=== PATIENT | male | born 1975 | race Caucasian/White ===

== ENCOUNTER → 2018-04-13 | Outpatient (CLI) | payer OTHER ==
[~2018-04-13] MED LIST: AMIT50 PO; AMOX500 PO; CITA20 PO; CLIN300 PO; CLON1 PO; HYDACE25S PR; HYDACE5 PO; IBUP800 PO; METRIBP PO; MIRALAX17 GM PO; OMEPRAZOLE20 MG PO; OXYACE5T PO; PENVK500 PO; QUET25 PO; RXHYDACE PO; RXPROM25 PO; ZESTRIL40 MG PO
[2018-04-13 10:57] LABS: BASOPHILS ABSOLUTE AUTO 0.06 K/mm3 (0.00-0.23); BASOPHILS PERCENT AUTO 2 % (0-2); EOSINOPHILS ABSOLUTE AUTO 0.33 K/mm3 (0.00-0.68); EOSINOPHILS PERCENT AUTO 9 % (0-6); Hematocrit 42.4 % (37.0-53.0); Hemoglobin 14.5 g/dL (13.5-17.5); IMMATURE GRAN ABSOLUTE AUTO 0.01 K/mm3 (0.00-0.10); IMMATURE GRAN PERCENT AUTO 0 % (0-1); LYMPHOCYTES ABSOLUTE AUTO 1.24 K/mm3 (0.84-5.20); LYMPHOCYTES PERCENT AUTO 34 % (21-46); MONOCYTES ABSOLUTE AUTO 0.39 K/mm3 (0.16-1.47); MONOCYTES PERCENT AUTO 11 % (4-13); Mean Corpuscular HGB Conc 34.2 g/dL (31.5-36.5); Mean Corpuscular Volume 96 fL (80-100); Mean Platelet Volume 9.2 fL (9.1-12.4); NEUTROPHILS ABSOLUTE AUTO 1.65 K/mm3 (1.96-9.15); NEUTROPHILS PERCENT AUTO 45 % (41-73); Platelet Count 276 K/mm3 (150-400); RDW Coefficient Variation 13.3 % (11.7-14.2); RDW Standard Deviation 47.5 fL (35.1-46.3); White Blood Cell Count 3.68 K/mm3 (4.00-11.30)
[2018-04-13 12:17] LABS: Alanine Aminotransfer (ALT/SGP 42 U/L (12-78); Albumin, Blood 3.7 g/dL (3.4-5.0); Alk Phos 73 U/L (50-136); Anion Gap 9 mmol/L (6-16); Aspartate Aminotrans (AST/SGOT 46 U/L (12-37); Bilirubin, Total 0.3 mg/dL (0.1-1.0); Blood Urea Nitrogen 12 mg/dL (8-24); Bun/Creatinine Ratio 10.3 (12.0-20.0); CO2, Blood 26 mmol/L (21-32); Calcium, Blood 8.3 mg/dL (8.5-10.1); Chloride, Blood 104 mmol/L (98-108); Creatinine, Blood 1.17 mg/dL (0.60-1.20); Globulin, Blood 3.8 g/dL (2.2-4.0); Glomerular Filtration Rate >60 (60-); Glucose, Blood 80 mg/dL (70-99); Potassium, Blood 4.5 mmol/L (3.5-5.5); Sodium, Blood 139 mmol/L (136-145); Total Protein, Blood 7.5 g/dL (6.4-8.2)
== END | disposition home or self-care (01) ==
LOC: LAB SHORT 10:48 → LAB EV 10:48
PROVIDERS: Physician Assistant
DX: K62.5 Hemorrhage of anus and rectum (principal)
CPT/HCPCS: 80053; 83690; 85025

== ENCOUNTER 2018-05-21 08:20 | Day surgery (SDC) | payer OTHER ==
[~2018-05-21] VITALS: Ht 172.7 cm; Wt 70.3 kg
== END 2018-05-21 10:55 | disposition home or self-care (01) ==
LOC: ORSCSDS 08:20
PROVIDERS: Student in an Organized Health Care Education/Training Program
PROC: 0DB58ZX Excision of Esophagus, Via Natural or Artificial Opening Endoscopic, Diagnostic (ICD-10-PCS; principal; 2018-05-21 09:45)
PROC: 0DJD8ZZ Inspection of Lower Intestinal Tract, Via Natural or Artificial Opening Endoscopic (ICD-10-PCS; principal; 2018-05-21 09:45)
PROC: 0DB68ZX Excision of Stomach, Via Natural or Artificial Opening Endoscopic, Diagnostic (ICD-10-PCS; principal; 2018-05-21 09:45)
PROC: 0DB98ZX Excision of Duodenum, Via Natural or Artificial Opening Endoscopic, Diagnostic (ICD-10-PCS; principal; 2018-05-21 09:45)
DX: K21.9 Gastro-esophageal reflux disease without esophagitis (principal); K22.70 Barrett's esophagus without dysplasia; R10.9 Unspecified abdominal pain; K92.1 Melena; K29.70 Gastritis, unspecified, without bleeding; K44.9 Diaphragmatic hernia without obstruction or gangrene; K64.8 Other hemorrhoids; I10 Essential (primary) hypertension; Z79.899 Other long term (current) drug therapy
CPT/HCPCS: 88305; 88342; J2250; J7120

== ENCOUNTER 2019-10-28 23:56 | Emergency (ER) | payer OTHER ==
[~2019-10-28] VITALS: Ht 170.2 cm; Wt 77.1 kg
== END 2019-10-29 00:52 | disposition home or self-care (01) ==
LOC: ER 23:56
DX: S09.90XA Unspecified injury of head, initial encounter (principal); F17.200 Nicotine dependence, unspecified, uncomplicated; W22.8XXA Striking against or struck by other objects, initial encounter
CPT/HCPCS: 70450; 99284-25

== ENCOUNTER 2023-01-01 09:04 | Day surgery (SDC) | payer OTHER ==
[~2023-01-01] VITALS: Ht 172.7 cm; Wt 73.4 kg
[~2023-01-01 09:04] MED LIST changes: +LISI20 PO
[2023-01-01 11:27] VITALS: BP 106/68
== END 2023-01-01 11:20 | disposition home or self-care (01) ==
LOC: ORSCSDS 09:04
PROVIDERS: Internal Medicine Gastroenterology
PROC: 0DB98ZX Excision of Duodenum, Via Natural or Artificial Opening Endoscopic, Diagnostic (ICD-10-PCS; principal; 2023-01-01 10:30)
PROC: 0DB58ZX Excision of Esophagus, Via Natural or Artificial Opening Endoscopic, Diagnostic (ICD-10-PCS; principal; 2023-01-01 10:30)
DX: K22.70 Barrett's esophagus without dysplasia (principal); K21.9 Gastro-esophageal reflux disease without esophagitis; K29.80 Duodenitis without bleeding; K62.5 Hemorrhage of anus and rectum; Z87.891 Personal history of nicotine dependence; Z79.899 Other long term (current) drug therapy
CPT/HCPCS: 88305; J2250; J2704; J7120

== ENCOUNTER 2024-11-03 00:13 | Inpatient (IN) | payer OTHER ==
[~2024-11-03] VITALS: Ht 177.8 cm; Wt 77.1 kg
[2024-11-03] VITALS (11 sets, daily range): BP systolic 124–140; BP diastolic 79–115
[2024-11-03] MEDS ORDERED: Ziprasidone Mesylate 20 MG / Vial IM ONE (00:20)
[2024-11-03] MEDS ORDERED: Ketorolac Tromethamine 30mg Vial IV ONE (00:20)
[2024-11-03 00:32] LABS: BASOPHILS ABSOLUTE AUTO 0.05 K/mm3 (0.00-0.23); BASOPHILS PERCENT AUTO 1 % (0-2); EOSINOPHILS ABSOLUTE AUTO 0.02 K/mm3 (0.00-0.68); EOSINOPHILS PERCENT AUTO 0 % (0-6); Hematocrit 41.4 % (37.0-53.0); Hemoglobin 14.1 g/dL (13.5-17.5); IMMATURE GRAN ABSOLUTE AUTO 0.04 K/mm3 (0.00-0.10); IMMATURE GRAN PERCENT AUTO 0 % (0-1); LYMPHOCYTES PERCENT AUTO 20 % (21-46); MONOCYTES ABSOLUTE AUTO 1.25 K/mm3 (0.16-1.47); MONOCYTES PERCENT AUTO 11 % (4-13); Mean Corpuscular HGB 31.4 pg (26.0-34.0); Mean Corpuscular HGB Conc 34.1 g/dL (31.5-36.5); Mean Corpuscular Volume 92 fL (80-100); NEUTROPHILS ABSOLUTE AUTO 7.36 K/mm3 (1.96-9.15); NEUTROPHILS PERCENT AUTO 67 % (41-73); NRBC ABSOLUTE 0.02 K/mm3 (0.00-0.02); NRBC Auto 0.2 /100 WBC (0.0-0.2); Platelet Count 360 K/mm3 (150-400); RDW Coefficient Variation 14.5 % (11.7-14.2); RDW Standard Deviation 49.5 fL (35.1-46.3); Red Blood Cell Count 4.49 M/mm3 (4.30-5.90); White Blood Cell Count 10.92 K/mm3 (4.00-11.30)
[2024-11-03] MEDS ORDERED: FentaNYL Citrate 50 MCG/ML 2 ML Injection IV ONE (00:45)
[2024-11-03] MEDS ORDERED: LORazepam 2 MG/ML 1ML Injection IV ONE (00:50)
[2024-11-03 01:02] LABS: International Normalized Ratio 0.99; Prothrombin Time Results 10.9 Sec (9.7-11.5)
[2024-11-03 01:16] LABS: Magnesium, Blood 2.2 mg/dL (1.6-2.4)
[2024-11-03 01:58] LABS: Albumin, Blood 4.2 g/dL (3.4-5.0); Bilirubin, Total 0.3 mg/dL (0.1-1.0); Bun/Creatinine Ratio 6.8 (12.0-20.0); Creatinine, Blood 1.32 mg/dL (0.60-1.20); Globulin, Blood 4.1 g/dL (2.2-4.0); Potassium, Blood 3.9 mmol/L (3.5-5.5); Total Protein, Blood 8.3 g/dL (6.4-8.2)
[2024-11-03] MEDS ORDERED: NS 1,000 ML IV SCH (02:20)
[2024-11-03] MEDS ORDERED: Piperacillin/Tazobactam Sod 4.5 GM in NS 100 ML IV ONE (02:20)
[2024-11-03] MEDS ORDERED: Dexamethasone Sod Phos 10 MG/ML 1ML VIAL ONE (02:59)
[2024-11-03] MEDS ORDERED: Rocuronium Bromide 10 MG/ML 5ML Injection IV ONE ×2 (02:59→03:42)
[2024-11-03] MEDS ORDERED: FentaNYL Citrate 50 MCG/ML 2 ML Injection ONE (02:59)
[2024-11-03] MEDS ORDERED: propofoL 20 ML IV ONE (02:59)
[2024-11-03] MEDS ORDERED: Sugammadex Sodium 200 MG/2ML SDV (100 MG/ML) ONE (02:59)
[2024-11-03] MEDS ORDERED: Ondansetron HCl 2 MG / ML 2ML Vial ONE (02:59)
[2024-11-03] MEDS ORDERED: SuccINYLCHOLINE Chloride 100 MG/5 ML 5MLSYR ONE (02:59)
[2024-11-03] MEDS ORDERED: Midazolam HCl 1MG / ML 2ML Vial ONE (03:00)
[2024-11-03] MEDS ORDERED: Phenylephrine HCl 100 MCG/ML-NS 10MLSYR (1MG/10ML) ONE (03:34)
[2024-11-03] MEDS ORDERED: Ondansetron HCl 2 MG / ML 2ML Vial IV PRN (03:35)
[2024-11-03] MEDS ORDERED: OxyCODONE HCL 5 MG TAB PO PRN (03:35)
[2024-11-03] MEDS ORDERED: HYDROmorphone HCl/Pf 1MG SYR IV PRN (03:35)
[2024-11-03] MEDS ORDERED: Acetaminophen 325 MG TABLET PO PRN (03:35)
[2024-11-03] MEDS ORDERED: Lactated Ringer's 1,000 ML IV SCH ×2 (03:35→22:45)
[2024-11-03] MEDS ORDERED: Polyethylene Glycol 3350 17 gm PO PRN (03:35)
[2024-11-03] MEDS ORDERED: Ketorolac Tromethamine 15mg Vial IV PRN (03:50)
[2024-11-03] MEDS ORDERED: Dexmedetomidine HCL 200 MCG / 2 ML ONE (04:07)
--- NOTE | 2024-11-03 04:15 | NUR ---
11/03/24 0415 Dianna Washington GIVEN IN ER PRIOR TO COMING TO SURGERY
[2024-11-03] MEDS ORDERED: Metoclopramide HCl 5MG / ML 2ML Vial ONE (05:01)
--- NOTE | 2024-11-03 07:00 | NUR ---
ASSUMPTION OF CARE PT RECEIVING LR 75ML/HR. PT WAKENS TO VERBAL STIMULI. HE IS ABLE TO STATE NAME AND THAT HE IS IN THE HOSPITAL. HE STS HE WAS BIT BY A DOG "WHEN MY HANDS WERE UP". HE STS THE DATE IS "July OR 2024". HE STS HE DRANK "A LITTLE BIT" OF ALCOHOL. HE STS HE DRANK ALCOHOL YESTERDAY, THE DAY PRIOR, AND THEN 2 WEEKS PRIOR TO THAT. HE DENIES EXPERIENCING ALCOHOL WITHDRAWLS IN THE PAST. PT IS TREMULOUS AND WEAK. FOLLOWS COMMANDS, PARTICIPATES IN CONVERSATION AND ASSISTS WITH CARE ABLE. HE WAS ON 6L NC, TITRATED DOWN TO 3L, THEN TO RA WITH SPO2 >98%. ETCO2 42. DENIES SOB. LUNG SOUNDS DIMINISHED WITH RHONCHI. PT ABLE TO PRODUCE STRONG COUGH. SINUS TACH ON MONITOR WITH RATE IN 110S-130S. STRONG PULSES THROUGHOUT. PT PASSED BEDSIDE SWALLOW. PT ABLE TO DRINK MULTIPLE CUPS OF JUICE. DENIES WANTING TO EAT FOOD ON BREAKFAST TRAY. PT ABLE TO VOID 500ML IN URINAL. L CALF DRESSING REMAINS IN PLACE. PT HAS SCATTERED ABRASIONS AND BRUISING THROUGHOUT BODY. C/O GENERALIZED PAIN, LOCALIZED PAIN IN L LEG AND GENERALIZED WEAKNESS. BED IN LOW POSITION, BED ALARM ON AND CALL LIGHT WITHIN REACH.
[2024-11-03 07:17] LABS: BASOPHILS ABSOLUTE AUTO 0.03 K/mm3 (0.00-0.23); BASOPHILS PERCENT AUTO 0 % (0-2); EOSINOPHILS PERCENT AUTO 0 % (0-6); Hematocrit 38.8 % (37.0-53.0); Hemoglobin 12.6 g/dL (13.5-17.5); IMMATURE GRAN ABSOLUTE AUTO 0.03 K/mm3 (0.00-0.10); IMMATURE GRAN PERCENT AUTO 0 % (0-1); LYMPHOCYTES ABSOLUTE AUTO 0.39 K/mm3 (0.84-5.20); LYMPHOCYTES PERCENT AUTO 4 % (21-46); MONOCYTES ABSOLUTE AUTO 1.18 K/mm3 (0.16-1.47); MONOCYTES PERCENT AUTO 13 % (4-13); Mean Corpuscular HGB Conc 32.5 g/dL (31.5-36.5); Mean Corpuscular Volume 96 fL (80-100); NEUTROPHILS ABSOLUTE AUTO 7.73 K/mm3 (1.96-9.15); NEUTROPHILS PERCENT AUTO 83 % (41-73); Platelet Count 289 K/mm3 (150-400); RDW Coefficient Variation 14.7 % (11.7-14.2); RDW Standard Deviation 51.7 fL (35.1-46.3); Red Blood Cell Count 4.06 M/mm3 (4.30-5.90); White Blood Cell Count 9.36 K/mm3 (4.00-11.30)
[2024-11-03 07:49] LABS: Albumin, Blood 3.6 g/dL (3.4-5.0); Bilirubin, Total 0.7 mg/dL (0.1-1.0); Bun/Creatinine Ratio 8.9 (12.0-20.0); Calcium, Blood 7.7 mg/dL (8.5-10.1); Creatinine, Blood 1.01 mg/dL (0.60-1.20); Globulin, Blood 3.6 g/dL (2.2-4.0); Potassium, Blood 4.7 mmol/L (3.5-5.5); Total Protein, Blood 7.2 g/dL (6.4-8.2)
[2024-11-03] MEDS ORDERED: Piperacillin/Tazobactam Sod 3.375 GM in NS 100 ML IV SCH (08:00)
--- NOTE | 2024-11-03 10:56 | NUR ---
HOME MED PT REPORTS PREVIOUSLY TAKING LISINOPRIL 20MG BUT HAS NOT TAKEN IT FOR AT LEAST TWO MONTHS. DENIES OTHER MEDICATIONS.
[2024-11-03] MEDS ORDERED: Nicotine Polacrilex 2 MG Gum PO PRN ×2 (16:45→18:20)
[2024-11-03] MEDS ORDERED: PHENobarbital 64.8 MG Tab PO ONE (18:00)
[2024-11-03] MEDS ORDERED: PHENobarbital 64.8 MG Tab PO PRN (18:25)
--- NOTE | 2024-11-03 18:43 | NUR ---
SHIFT SUMMARY PT IS ALERT AND ORIENTED WITH PLEASANT AFFECT. PT STS HE REMEMBERS EVENTS PRIOR TO THE DOG BITE BUT ONCE THE DOG BIT HIM THAT HE WAS "BLACKING OUT OVER AND OVER". HE HAS BEEN ASSISTING WITH CARE AND ADLS ABLE. HE IS ON RA, DENIES SOB. SINUS ON MONITOR WITH RATE IN 80S. TOLERATING DIET WELL. PT HAD LARGE PO FLUID INTAKE THIS SHIFT. PT VOIDING WITHOUT DIFFICLTY. LLE DRESSING REMAINS IN PLACE. DR LEMON ROUNDED, PLAN FOR DRESSING CHANGE TOMORROW. PT C/O LLE PAIN AND NUMBNESS FROM THE KNEE TO APPROX 5 INCHES BELOW THE KNEE. PT ABLE TO MOVE LEG AND FLEX FOOT. STRONG PEDAL PULSE. HOSPITALIST CONSULTED FOR POSSIBLE ALCOHOL WITHDRAWLS. PT HAS BEEN TREMULOUS THROUGHOUT THE DAY DESPITE DENYING WITHDRAWL SYMPTOMS AND HISTORY OF WITHDRAWL. MOST RECENT CIWA 8 AND MEDICATED PER EMAR. PT USES CHEWING TOBACCO, REQUESTING GUM. GUM PROVIDED AND PT REQUESTS HIGHER DOSE, NEW ORDER RECEIVED FROM PROVIDER. OFFICER ARRIVED TO DISCUSS DOG BITE WITH PT. PT GAVE CONSENT FOR OFFICER TO BE IN HIS ROOM. PT APPEARS ANXIOUS, REQUESTING INFORMATION REGARDING CHARGES. 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 PT REQUESTS OFFICER TO LEAVE, OFFICER PROMPTLY LEFT ROOM. BED IN LOW POSITION, CALL LIGHT WITHIN REACH.
[2024-11-03 21:00] LABS: Bun/Creatinine Ratio 12.3 (12.0-20.0); Calcium, Blood 8.3 mg/dL (8.5-10.1); Creatinine, Blood 0.98 mg/dL (0.60-1.20); Potassium, Blood 3.9 mmol/L (3.5-5.5)
[2024-11-03] MEDS ORDERED: Lactobacil 2-S.Thermo-Bifido 1 1 Cap PO SCH (21:00)
[2024-11-03] MEDS ORDERED: Arginine/Glutamine/Calcium Hmb 1 Packet PO SCH (21:00)
[2024-11-04 03:44] LABS: BASOPHILS ABSOLUTE AUTO 0.02 K/mm3 (0.00-0.23); BASOPHILS PERCENT AUTO 0 % (0-2); EOSINOPHILS ABSOLUTE AUTO 0.28 K/mm3 (0.00-0.68); EOSINOPHILS PERCENT AUTO 3 % (0-6); Hematocrit 31.3 % (37.0-53.0); Hemoglobin 10.4 g/dL (13.5-17.5); IMMATURE GRAN ABSOLUTE AUTO 0.05 K/mm3 (0.00-0.10); IMMATURE GRAN PERCENT AUTO 1 % (0-1); LYMPHOCYTES ABSOLUTE AUTO 1.02 K/mm3 (0.84-5.20); LYMPHOCYTES PERCENT AUTO 10 % (21-46); MONOCYTES ABSOLUTE AUTO 1.39 K/mm3 (0.16-1.47); MONOCYTES PERCENT AUTO 13 % (4-13); Mean Corpuscular HGB 30.8 pg (26.0-34.0); Mean Corpuscular HGB Conc 33.2 g/dL (31.5-36.5); Mean Corpuscular Volume 93 fL (80-100); Mean Platelet Volume 9.4 fL (9.1-12.4); NEUTROPHILS ABSOLUTE AUTO 8.03 K/mm3 (1.96-9.15); NEUTROPHILS PERCENT AUTO 74 % (41-73); NRBC ABSOLUTE 0.02 K/mm3 (0.00-0.02); NRBC Auto 0.2 /100 WBC (0.0-0.2); Platelet Count 256 K/mm3 (150-400); RDW Coefficient Variation 14.3 % (11.7-14.2); RDW Standard Deviation 48.4 fL (35.1-46.3); Red Blood Cell Count 3.38 M/mm3 (4.30-5.90); White Blood Cell Count 10.79 K/mm3 (4.00-11.30)
[2024-11-04 05:56] LABS: Albumin, Blood 3.2 g/dL (3.4-5.0); Bilirubin, Total 0.4 mg/dL (0.1-1.0); Calcium, Blood 8.3 mg/dL (8.5-10.1); Creatinine, Blood 0.92 mg/dL (0.60-1.20); Globulin, Blood 3.3 g/dL (2.2-4.0); Potassium, Blood 4.1 mmol/L (3.5-5.5); Total Protein, Blood 6.5 g/dL (6.4-8.2)
--- NOTE | 2024-11-04 06:19 | NUR ---
SHIFT SUMMARY PT HAS BEEN PLEASANT AND COOPERATIVE T/O THIS SHIFT. FOLLOWING COMMANDS AND PARTICIPATING IN CARE. PT EXPRESSED DESIRE TO QUIT DRINKING AND REQUESTED ASSISTANCE IN RESOURCES AFTER DISCHARGE. CARE MANAGEMENT CONSULT WAS PLACED. PT VSS T/O SHIFT. CIWAS HAVE BEEN 10-12, PHENOBARB X2 DOSES GIVEN THIS SHIFT. PT STATED THIS MED HAS WORKED WELL FOR HIM THIS SHIFT AND STATES RELIEF FROM WD SX. REMAINED ON ROOM AIR WITH SATS > 94%. USES URINAL INDEPENDENTLY, GOOD UOP NOTED. NO BM THIS SHIFT. PT EATING AND DRINKING GOOD AMOUNTS W/O REPORTS OF NAUSEA. PTS WOUND IS DRESSED WITH GAUZE AND DIGNA WRAP, SHADOWING NOTED ON DRESSING BUT NO DRAINAGE NOTED ON DRY FLOW UNDERNEATH PTS LEG. PAIN HAS BEEN MANAGED FAIRLY WELL WITH TORADOL AND OXY. PT WAS ABLE TO GET SOME SLEEP T/O THE NIGHT. NO ACUTE EVENTS OCCURRED. CALL LIGHT IN REACH.
[2024-11-04 08:38] VITALS: BP 137/89
[2024-11-04 09:00] VITALS: BP 129/83
[2024-11-04 11:41] VITALS: BP 118/91
[2024-11-04] MEDS ORDERED: Enoxaparin 40 MG/0.4 ML SYR SC SCH (12:00)
[2024-11-04] MEDS ORDERED: Piperacillin/Tazobactam Sod 3.375 GM in NS 100 ML IV SCH (12:30)
[2024-11-04] MEDS ORDERED: NS 250 ML IV PRN (12:50)
[2024-11-04] MEDS ORDERED: Thiamine HCl 100 MG Tab PO SCH (13:00)
[2024-11-04] MEDS ORDERED: Folic Acid 1 MG TAB PO SCH (13:00)
--- NOTE | 2024-11-04 18:43 | NUR ---
Summary. Pt much improved this shift. Alert and oriented, left leg dressing changed with Dr. Castorena today. Pt up with PT, able to ambulated independently with walker or crutches. Pt still requiring medication for withdrawal symptoms, only medicated twice this shift, see emar. PRN pain meds working well. No acute events, see chart for further details.
[2024-11-04 19:41] VITALS: BP 151/81
[2024-11-04 20:00] VITALS: BP 149/98
--- NOTE | 2024-11-04 22:10 | NUR ---
@1949 REPORT RECEIVED FROM FOURTH MATEJORDAN SO. @1999 PT ARRIVED TO THE MEDICAL FLOOR, RM [id number]. PT ARRIVED IN A W/C AND TRANSFERRED HIMSELF TO THE HOSPITAL BED. PT IS AMBULATORY WITH FWW. A/O X4, COOPERATIVE WITH CARE, CONTINENT, INDEPENDENT WITHIN THE HOSPITAL ROOM. PT BROUGHT ALL HIS BELONINGS WITH HIM. PT ASKED IF HE WOULD BE ALLOWED TO VISIT HIS BROTHER IN RM 363 AT [facility] FLOOR, IT WAS DISCUSSED WITH THE CHARGE NURSE BETO THAT AFTER 1999 IT WAS LATE TO VISIT AT THIS TIME. PT VERBALIZED UNDERSTANDING AND WAS AGREEABLE TO THIS DECISION. BED AT THE LOWEST POSITION, CALL LIGHT W/I REACH. EDUCATED BATCH PLANT OPERATOR LIGHT. PT IS PLEASANT AND COOPERATIVE WITH CARE.
[2024-11-04 23:57] VITALS: BP 146/95
--- NOTE | 2024-11-05 03:42 | NUR ---
SHIFT SUMMARY PT ARRIVED FROM THE ICU @1999. REPORT WAS RECEIVED FROM INTERMEDIATE PROJECT MANAGER JUDAH. PT ARRIVED IN A W/C AND IS 1-PERSON ASSIST WITH FWW. PT BROUGHT ALL HIS BELONINGS WITH HIM. PT WAS MEDICATED PER EMAR FOR C/O 6-9/10 LEFT THIGH PAIN. DRESSING WAS CHANGED D/T ODOROUS, SEROSANGUINEOUS FLUID THROUGH DIGNA DRESSING. TIN ARE IN PLACE. CLEANSED WITH NS GENTLY AND APPLIED ABD PAD, KERLEX AND DIGNA WRAP. PT TOLERATED WELL. PRE MEDICATED WITH IV DILAUDID PRIOR THE DRESSING CHANGE. PRN NICOTINE GUM ADMINISTERED T/O THE NIGHT. PT WAS ABLE TO SLEEP 3HRS W/O INTERRUPTIONS, PER PT REPORT. PT STATES FEELING 100% BETTER AFTER. LEFT LEG ELEVATED WITH PILLOWS. IV ABX INFUSED ORDERED. PT IS A/OX4, PLEASANT, AND COOPERATIVE WITH CARE. PT IS ABLE TO MAKE HIS NEEDS KNOWN AND CALLS APPROPRIATELY. BED AT THE LOWEST POSITION, BEDSIDE URINAL IN PLACE. CALL LIGHT WITHIN REACH.
[2024-11-05 04:43] VITALS: BP 151/97
[2024-11-05 06:31] LABS: BASOPHILS ABSOLUTE AUTO 0.03 K/mm3 (0.00-0.23); BASOPHILS PERCENT AUTO 0 % (0-2); EOSINOPHILS ABSOLUTE AUTO 0.07 K/mm3 (0.00-0.68); EOSINOPHILS PERCENT AUTO 1 % (0-6); Hemoglobin 10.2 g/dL (13.5-17.5); IMMATURE GRAN ABSOLUTE AUTO 0.04 K/mm3 (0.00-0.10); IMMATURE GRAN PERCENT AUTO 1 % (0-1); LYMPHOCYTES ABSOLUTE AUTO 1.93 K/mm3 (0.84-5.20); LYMPHOCYTES PERCENT AUTO 24 % (21-46); MONOCYTES ABSOLUTE AUTO 0.82 K/mm3 (0.16-1.47); MONOCYTES PERCENT AUTO 10 % (4-13); Mean Corpuscular HGB 31.2 pg (26.0-34.0); Mean Corpuscular HGB Conc 32.9 g/dL (31.5-36.5); Mean Corpuscular Volume 95 fL (80-100); Mean Platelet Volume 9.9 fL (9.1-12.4); NEUTROPHILS ABSOLUTE AUTO 5.09 K/mm3 (1.96-9.15); NEUTROPHILS PERCENT AUTO 64 % (41-73); Platelet Count 260 K/mm3 (150-400); RDW Coefficient Variation 14.5 % (11.7-14.2); RDW Standard Deviation 49.7 fL (35.1-46.3); Red Blood Cell Count 3.27 M/mm3 (4.30-5.90); White Blood Cell Count 7.98 K/mm3 (4.00-11.30)
[2024-11-05 07:14] LABS: Albumin, Blood 3.1 g/dL (3.4-5.0); Albumin/Globulin Ratio 0.9 (0.8-1.8); Bilirubin, Total 0.4 mg/dL (0.1-1.0); Bun/Creatinine Ratio 10.5 (12.0-20.0); Calcium, Blood 8.6 mg/dL (8.5-10.1); Creatinine, Blood 1.05 mg/dL (0.60-1.20); Globulin, Blood 3.4 g/dL (2.2-4.0); Potassium, Blood 3.6 mmol/L (3.5-5.5); Total Protein, Blood 6.5 g/dL (6.4-8.2)
[2024-11-05 07:22] VITALS: BP 133/86
[2024-11-05 11:40] VITALS: BP 140/90
[2024-11-05] MEDS ORDERED: Acetaminophen650 M1 PO (15:39)
[2024-11-05] MEDS ORDERED: OXAYDO5 M1 PO (15:41)
[2024-11-05] MEDS ORDERED: B-1100 M1 PO (15:42)
[2024-11-05] MEDS ORDERED: ACAMPROSATE CA333 MG PO (15:43)
[2024-11-05] MEDS ORDERED: AMOCLA875 PO (15:44)
[2024-11-05] MEDS ORDERED: Ativan1 MG PO (15:46)
[2024-11-06] MEDS ORDERED: AMOCLA875 PO (15:57)
== END 2024-11-05 17:08 | disposition home health service (06) | DRG 908 ==
LOC: ER 00:13 → ICUE 00:14 → MEDS 11-04 15:23 → ICUE 11-04 15:24 → MEDS 11-04 19:59 → ENPENDDIS 11-05 13:43 → MEDS 11-05 17:08
PROVIDERS: Emergency Medicine; Family Medicine; ADMIT Surgery
PROC: 0KBR0ZZ Excision of Left Upper Leg Muscle, Open Approach (ICD-10-PCS; principal; 2024-11-03 17:45)
DX: S77.12XA Crushing injury of left thigh, initial encounter (principal); F10.131 Alcohol abuse with withdrawal delirium; F17.223 Nicotine dependence, chewing tobacco, with withdrawal; S71.152A Open bite, left thigh, initial encounter; K21.9 Gastro-esophageal reflux disease without esophagitis; R79.89 Other specified abnormal findings of blood chemistry; Y90.8 Blood alcohol level of 240 mg/100 ml or more; W54.0XXA Bitten by dog, initial encounter
CPT/HCPCS: 36415; 73706; 80048; 80053; 80320; 82550; 83605; 83735; 85025; 85610; 94760; 94762; 96365; 96366; 96372; 96375; 96376; 97110; 97116; 97162; 99285-25; A9270; G0378; J0330; J1100; J1171; J1650; J1885; J2060; J2250; J2371; J2405; J2543; J2704; J2765; J3010; J3486; J7030; J7050; J7120; Q9967

== ENCOUNTER 2024-11-06 11:14 | Emergency (ER) | payer OTHER ==
[~2024-11-06] VITALS: Ht 172.7 cm; Wt 76.2 kg
[~2024-11-06 11:14] MED LIST changes: +ACAMPROSATE CA333 MG PO; +AMOCLA875 PO; +Acetaminophen650 M1 PO; +Ativan1 MG PO; +B-1100 M1 PO; +OXAYDO5 M1 PO
[2024-11-06 12:03] VITALS: BP 128/89
[2024-11-06] MEDS ORDERED: Amoxicillin/Clavulanate K 875 MG Tab PO ONE (15:55)
[2024-11-06] MEDS ORDERED: AMOCLA875 PO (15:57)
[2024-11-06] MEDS ORDERED: OxyCODONE HCL 5 MG TAB PO ONE (16:00)
[2024-11-06] MEDS ORDERED: Acetaminophen 325 MG TABLET PO ONE (16:15)
[2024-11-06] MEDS ORDERED: LORazepam 1 MG Tab PO ONE (16:15)
== END 2024-11-06 16:36 | disposition home or self-care (01) ==
LOC: ER 11:14
DX: M79.606 Pain in leg, unspecified (principal); Z76.0 Encounter for issue of repeat prescription; F17.200 Nicotine dependence, unspecified, uncomplicated; Z79.899 Other long term (current) drug therapy
CPT/HCPCS: 99282; A9270